=== PATIENT | male | born 1960 | race Caucasian/White ===

== ENCOUNTER → 2017-11-21 | Outpatient (CLI) | payer OTHER ==
[~2017-11-21] VITALS: Ht 188 cm; Wt 121.3 kg
[~2017-11-21] MED LIST: AMBEREN; ANAPROX; BUMEX; CIALIS20 MG PO; FLEXERIL PO; FLOMAX0.4 MG PO; KLOR-CON 1010 MEQ PO; LISINOPRIL20 MG PO; NAPROSYN250 MG; NAPROSYN500 MG PO; PERCOCET 7.5-31 EACH PO; SYNTHROID175 MCG PO; TRAMADOL 50 MG50 MG PO; TYLENOL EXTRA500 MG PO; VITAMIN D400 UNI1 PO; ZYRTEC
--- NOTE | ~2017-11-21 | HPC ---
[facility] [place] [address] PAIN MANAGEMENT CONSULTATION Name: CALLIE GUERRERO ALAN Room #: REG [facility] Ermelinda.#: [id number] Admission: 11/21/17 Attend Phys: Steve Bashir DO Discharge: Date of : 62 Report #: [id number] THIS REPORT FOR: //name// CC: Martín Bashir The patient is a 57-year-old gentleman, prior seen in the pain clinic in 2008, for lumbar radiculopathy, given epidural injection at that time, again in 2013 and in 2015. Somewhat lost to follow up. He returned to the pain clinic 09/20/2017, saw my partner, Dr. Wayne Jacobson and had a single epidural injection at L4-L5 for recurrent radicular symptoms. The patient returns to pain clinic today noting that injection afforded incremental relief, the patient states about 80% relief for 3 weeks, the pain has begun to recur. He rates pain a 6 on a VAS. Low back and left leg with some radiation to the right leg. Notes pain is exacerbated with standing and walking. Denies myelopathic symptoms. PHYSICAL EXAMINATION: Shows a 57-year-old gentleman, BMI is 34.3 kg/m2. Blood pressure 121/65, pulse 74, and respirations 16. Rises from chair using armrest. He has a modestly antalgic gait. Straight leg raise is positive bilaterally, left greater than right at 30 degrees. Lumbar flexion is limited to 80 degrees. He does have a little thoracic kyphosis. Left leg shows diminished strength to hip flexion and dorsiflexion about 3-4/5. Right leg shows strength at about 4/5 to objective testing. Diffuse tenderness across the low back. No discrete trigger points are noted. Skin integument is intact. DIAGNOSTIC STUDIES: Quite dated, MRI from 2010 (06/21/2011), notes degenerative changes with loss of disk height at L5-S1. I suspect that this has continued over the last 6-1/2 years. The patient's physical exam compatible with lumbar radiculopathy secondary to spinal stenosis. RECOMMENDATIONS: We will seek authorization for repeat epidural injection under fluoroscopy. Again, he has had good incremental relief, both historically having had injections in 2008, 2010, 2013 and 2015 and 80% relief following injection 09/20/2017, though that good relief was about 3 weeks, pain has begun to recur, it is still improved from baseline. I believe second injection would help. However, given that insurance company has not authorized that injection, we will ask for MRI of the lumbar spine to evaluate overall changes and ensure that there is no surgically correctable pathology. Discharged in good and stable condition, we will seek authorization for epidural injection under fluoroscopy and repeat MRI. <ELECTRONICALLY SIGNED> By: Steve Bashir DO 11/22/17 0810 [id number] [id number] Steve Bashir DO /nt
[2017-11-21 10:06] VITALS: BP 121/65
== END ==
LOC: PAIN 07:07
DX: M54.16 Radiculopathy, lumbar region (principal)

== ENCOUNTER → 2017-11-29 | Outpatient (CLI) | payer OTHER ==
[~2017-11-29] VITALS: Ht 188 cm; Wt 122.0 kg
--- NOTE | ~2017-11-29 | HPC ---
[facility] [place] [address] PAIN MANAGEMENT CONSULTATION Name: CESARCALLIEMaldonado MORAN Room #: REG [facility] Ermelinda.#: [id number] Admission: 11/29/17 Attend Phys: Steve Bashir DO Discharge: Date of : 62 Report #: [id number] THIS REPORT FOR: //name// CC: Martín Bashir PAIN CLINIC NOTE SUBJECTIVE: The patient is a 57-year-old gentleman, prior seen in the pain clinic on 11/21/2017, diagnosed with symptomatic lumbar radiculopathy. We sought authorization for epidural injection under fluoroscopy. The patient returns to pain clinic today for request injection. The patient notes pain continues across the low back, left greater than right leg. Rates the pain at 6-7 on VAS. Physical exam is unchanged from last week. ASSESSMENT: Symptomatic lumbar radiculopathy. PROCEDURE: Lumbar epidural injection under fluoroscopy. PROCEDURE NOTE: After both written and informed consent to include risk of spinal cord damage, increased pain, weakness and dural puncture, the patient was taken to the fluoroscopy suite, placed in the prone position. After sterile prep and drape, a skin wheal with lidocaine was raised. A 22-gauge epidural Tuohy needle was inserted in the midline at L4-L5 with good loss to resistance. Negative aspiration for cerebrospinal fluid or blood was noted. Then 1 mL of Omnipaque under biplanar fluoroscopy showed good spread within the epidural space. This was followed with 80 mg of triamcinolone plus 1 mL of 1.5% preservative-free Xylocaine, 0.5 mL Xylocaine was then injected to flush the needle; it was removed. The patient was monitored for an appropriate period of time and discharged in good and stable condition. <ELECTRONICALLY SIGNED> By: Steve Bashir DO 12/02/17 0911 1604 [id number] Steve Bashir DO /nt
[2017-11-29 12:44] VITALS: BP 151/70
== END | disposition home or self-care (01) ==
LOC: PAIN 06:59
DX: M54.16 Radiculopathy, lumbar region (principal); G89.29 Other chronic pain; Z79.899 Other long term (current) drug therapy

== ENCOUNTER → 2018-06-02 | Outpatient (CLI) | payer OTHER ==
[~2018-06-02] VITALS: Ht 188 cm; Wt 119.8 kg
--- NOTE | ~2018-06-02 | HPC ---
[facility] [place] [address] PAIN MANAGEMENT CONSULTATION Name: CALLIE GUERRERO Room #: REG [facility] [place].#: [id number] Admission: 06/02/18 Attend Phys: Wayne Jacobson MD Discharge: Date of : 62 Report #: [id number] THIS REPORT FOR: //name// CC: Florin Méndez MD DATE OF SERVICE: 06/02/2018 Followup visit for lumbar radiculopathy. The patient returns to clinic today in followup. He was last seen in 11/2017. Dr. Bashir has provided epidural injections for him in the past as have I. He responded nicely to the injections with up to 100% pain relief. Duration of response is often times over 2 months at that level and the pain gradually then returns. The patient has completed conservative therapy, has done physical therapy and walks 1 mile twice a day. He remains active as instructed. He has tried nonsteroidal anti-inflammatory drugs and continues to take naproxen 500 mg twice daily. We have talked extensively today about side effects. He does not use opioid medication at this time. He continues to work. His work does cause him pain and on review of his work effort, it is understood that often times he is lifting awkward heavy weight, which exacerbates his back pain. We have talked about the importance of body mechanics and keeping his position in a non-vulnerable area. He has a new MRI scan. The impression is understated. In review of the scan and also the body of the report, it shows that there is a paracentral disk herniation on the left extending in a subarticular location with arthritis causing mild central stenosis, but lateral recess stenosis would be consistent with his pain. He scores his pain currently as a 6-7. It is bilateral, but far worse on the left and it follows in the S1 distribution consistent with his L5-S1 disk herniation seen on the new MRI dated 04/08/2018. PHYSICAL EXAMINATION: VITAL SIGNS: His BMI is 33.9. His blood pressure is 121/78, heart rate 69. He ambulates with a slight antalgic gait. MUSCULOSKELETAL: He has pain in the lumbosacral region and pain with forward flexion and extension. Positive straight leg raising is noted on the left following an S1 distribution. Sensation is intact. Deep tendon reflexes are normal. [address] [address] PAIN MANAGEMENT CONSULTATION Name: CESARCALLIE DEAN Room #: REG GEORGE[facility]on Chisholm#: [id number] Admission: 06/02/18 Attend Phys: Wayne Jacobson MD Discharge: Date of : 62 Report #: [id number] IMPRESSION: Lumbar radiculopathy secondary to an L5-S1 left paracentral disk herniation. It is hard to know how long it has been there, but my feeling is based upon his symptoms that this is possibly somewhat chronic. RECOMMENDATIONS: 1. Continue with exercise as described. 2. Epidural steroid injection would be reasonable at this point in time to manage symptoms. 3. If symptoms become more persistent, more aggressive treatments are available including surgery and possibly spinal cord stimulation. 4. Cautioned with the use of the nonsteroidal anti-inflammatory drugs. I have suggested that he have an annual check of his creatinine and glomerular filtration rate. GI side effects and cardiac risks were reviewed with the patient. Plan is for him to return to the clinic for an epidural injection at L5-S1 left paramedian. We would do it today; however, his insurance company has required that he return for another visit. This is inconvenient for him. He will have to take off more time. It will cause more money, but we will follow their requirements. Followup visit is planned on . By: 1100 1210 Wayne Jacobson MD /nt
[2018-06-02 10:09] VITALS: BP 121/78
== END ==
LOC: PAIN 08:36
DX: M54.16 Radiculopathy, lumbar region (principal)

== ENCOUNTER → 2018-06-05 | Outpatient (CLI) | payer OTHER ==
[~2018-06-05] VITALS: Ht 188 cm; Wt 119.8 kg
--- NOTE | ~2018-06-05 | HPC ---
[facility] [place] [address] PAIN MANAGEMENT CONSULTATION Name: CALLIE GUERRERO Room #: REG [facility]#: [id number] Admission: 06/05/18 Attend Phys: Wayne Jacobson MD Discharge: Date of : 62 Report #: [id number] THIS REPORT FOR: //name// CC: Wayne Méndez MD DATE OF SERVICE: 06/05/2018 Followup visit for lumbar radiculopathy. The patient returns to the Pain Clinic for epidural steroid injection. We have received preauthorization from his insurance company. Prior to returning to the fluoroscopic suite, I reviewed his MRI from 04/08/2018. It shows that there is diffuse bulging at L4-L5, correlating with left L5 radicular symptoms. Extends in the subarticular location with arthritis causing stenosis. We have elected to repeat the epidural injection at the L5-S1 level. We are more concerned by a herniation that measures 5 x 15 mm. This results in high-grade stenosis on the left. IMPRESSION: Low back pain with radiculopathy, L5-S1 on the left. PROCEDURE: Epidural steroid injection L5-S1 left paramedian. DESCRIPTION OF PROCEDURE: He was taken to the fluoroscopic suite and was placed prone. Skin prepped with ChloraPrep. Skin anesthetized left to midline. A 20-gauge Tuohy epidural needle was advanced into the epidural space with loss of resistance technique. There was no blood or CSF aspirated. 1 mL of Omnipaque was injected. Good spread of dye observed in the epidural space followed by 3 mL of 0.5% lidocaine mixed with 80 mg of triamcinolone. He tolerated the procedure well, was observed for 45 minutes and discharged. Pain score was reduced to a 3 or 4. I plan to see him back in the Pain Clinic as needed. By: 1658 1933 Wayne Jacobson MD /nt
[2018-06-05 13:41] VITALS: BP 135/72
== END | disposition home or self-care (01) ==
LOC: PAIN 06:14
DX: M54.16 Radiculopathy, lumbar region (principal); G89.29 Other chronic pain; Z98.890 Other specified postprocedural states; Z79.899 Other long term (current) drug therapy